=== PATIENT | female | born 1955 | race African-American/Black ===

== ENCOUNTER 2019-03-18 22:46 | Emergency (ER) | payer OTHER ==
[~2019-03-18] VITALS: Ht 165.1 cm; Wt 73.5 kg
[2019-03-18] MEDS ORDERED: HYDROCHLOROTHIA25 M2 PO (23:11)
[2019-03-18] MEDS ORDERED: MELOXICAM7.5 MG PO (23:11)
[2019-03-18] MEDS ORDERED: LORAZEPAM 0.50.5 MG PO (23:11)
[2019-03-18] MEDS ORDERED: LOVASTATIN 20 M20 MG PO (23:13)
[2019-03-18] MEDS ORDERED: PHENTERMINE (23:14)
[2019-03-18] MEDS ORDERED: TOPAMAX100 MG PO (23:15)
[2019-03-18 23:35] LABS: INFLUENZA A ANTIGEN Negative (Negative); INFLUENZA B ANTIGEN Negative (Negative)
[2019-03-19 00:16] VITALS: BP 120/74
--- NOTE | 2019-03-19 10:19 | EKG ---
[place] [address] ELECTROCARDIOGRAM REPORT Name: JUANA PELAEZ [id number] Admission: 03/18/19 Attend Phys: Discharge: 03/19/19 Date of : 55 Report #: [id number] THIS REPORT FOR: //name// [facility] ED Test Date: 2019-03-18 Test Time: 23:00:32 Pat Name: JUANA PELAEZ Department: Room: Gender: F [employer]: REED : 1955 Requested By: Maryann Grayson Order Number: [id number] Brandon MD: Artemio Allen Measurements Intervals [place] Rate: 100 P: 206 CO: 168 QRS: 11 QRSD: 79 T: 57 QT: 377 QTc: 487 Interpretive Statements Sinus or ectopic atrial tachycardia Borderline T wave abnormalities Borderline prolonged QT interval No previous ECG available for comparison Electronically Signed On 03-19-2019 10:19:09 [employer] PROVIDER by Artemio Allen [email or web address] <ELECTRONICALLY SIGNED> By: Artemio Allen MD, [facility] 03/19/19 1019 2300 2300 Artemio Allen MD, FACC /EPI
== END 2019-03-19 00:16 | disposition home or self-care (01) ==
LOC: M.ERS 22:46 → EDBD 22:46 → M.ERS 03-19 00:16
PROVIDERS: Emergency Medicine
DX: R09.1 Pleurisy (principal); R05 Cough; I10 Essential (primary) hypertension